=== PATIENT | male | born 2000 | race American Indian/Alaskan Native ===

== ENCOUNTER 2018-02-03 14:18 | Emergency (ER) | payer SELFPAY ==
[2018-02-03 14:31] VITALS: TEMP 99.2; BMI 17.2
--- NOTE | 2018-02-03 15:06 | ED PDOC ---
Arrival/HPI - General Historian: Patient - History of Present Illness Time/Duration: 1-3 hours Symptom Onset: Sudden Symptom Course: Resolved Quality: Dullness Severity Level: 5 - General Chief Complaint: Abdominal Pain Time Seen by Provider: 02/03/18 14:22 - History of Present Illness Narrative History of Present Illness (Text): 02/03/18 15:24 Patient is a 17 year old male with no PMH presenting to the ED with vomiting, abdominal pain, and sore throat. Patient states that he had 2 episodes of vomiting with streaks of blood today and also complaining of a sore throat. Patient also admits to epigastric pain and a 20 pounds weight loss in the last 6 months. Patient denies of fevers, chills, shortness of breath, chest pain, N/D , or urinary symptoms. No PMD (Chapo Clarke) Past Medical History - Provider Review Nursing Documentation Reviewed: Yes - Travel History Have you recently traveled outside [place] w/in the past 3 mons?: No - Past History Past History: No Previous - Infectious Disease Hx of Infectious Diseases: None - Psychiatric Hx Substance Use: Yes (marijuana) Family/Social History - Physician Review Nursing Documentation Reviewed: Yes Family/Social History: No Known Family HX Smoking Status: Never Smoked Hx Alcohol Use: No Hx Substance Use: Yes (marijuana) Allergies/Home Meds Allergies/Adverse Reactions: Allergies No Known Allergies Allergy (Verified 02/03/18 14:51) Home Medications: Home Meds Medication Instructions Recorded Confirmed No Known Home Med 02/03/18 02/03/18 Review of Systems - Physician Review All systems were reviewed & negative as marked: Yes - Review of Systems Constitutional: Weight Change Eyes: Normal ENT: Normal Respiratory: Other (Throat pain). absent: SOB, Cough Cardiovascular: Normal. absent: Chest Pain Gastrointestinal: Abdominal Pain, Vomiting, Hematemesis. absent: Stool Changes , Constipation, Diarrhea, Hematochezia, Anorexia Genitourinary Male: Normal. absent: Dysuria, Frequency, Hematuria Musculoskeletal: Normal. absent: Arthralgias Skin: Normal. absent: Rash, Pruritis, Skin Lesions Neurological: Headache. absent: Dizziness Psychiatric: Normal. absent: Anxiety, Depression Physical Exam Vital Signs Reviewed: Yes Temperature: Afebrile Blood Pressure: Normal Pulse: Regular Respiratory Rate: Normal Appearance: Positive for: Well-Appearing, Comfortable. No: Non-Toxic Pain Distress: Mild Mental Status: Positive for: Alert and Oriented X 3 - Systems Exam Head: Present: Atraumatic, Normocephalic Pupils: Present: PERRL Extroacular Muscles: Present: EOMI Conjunctiva: Present: Normal Mouth: Present: Moist Mucous Membranes Respiratory/Chest: Present: Clear to Auscultation, Good Air Exchange. No: Respiratory Distress, Accessory Muscle Use, Wheezes, Rales, Rhonchi Cardiovascular: Present: Regular Rate and Rhythm, Normal S1, S2. No: Murmurs, Rub, Gallop Abdomen: Present: Tenderness (Mildly tender to palpation in the left lower quadrant), Normal Bowel Sounds. No: Distention, Peritoneal Signs, McBurney's Point Tender, Rovsing's Sign Present Upper Extremity: Present: Normal Inspection. No: Cyanosis, Edema Lower Extremity: Present: Normal Inspection. No: Edema Neurological: Present: GCS=15, CN II-XII Intact, Speech Normal Skin: Present: Warm, Dry, Normal Color. No: Rashes Psychiatric: Present: Alert, Oriented x 3, Normal Insight, Normal Concentration Vital Signs Temp Pulse Resp BP Pulse Ox 02/03/18 17:30 82 18 112/77 99 02/03/18 14:31 99.2 F 90 19 119/78 99 Medical Decision Making Reassessment Condition: Re-examined, Improved ED Course and Treatment: 02/03/18 15:19 Impression: Patient is a 17 year old male presenting to the ED with hematemesis, abdominal pain, and sore throat. Differential Diagnosis included but are not limited to: - H. pylori - Gastritis Plan: -- CBC -- CMP -- Lipase -- Chest xray -- CT abdomen with PO and IV contrast -- Tylenol Progress Notes: 02/03/18 17:33 - Patient complaining of headache. Tylenol ordered. - Lipase: 42 - WBC: WNL 02/03/18 18:59 - Chest Xray: No acute disease - CT abdomen: pending (Chapo Clarke) - Lab Interpretations Lab Results: 02/03/18 15:30 02/03/18 15:30 Lab Results 02/03/18 15:30: Sodium 144, Potassium 4.0, Chloride 103, Carbon Dioxide 26, Anion Gap 19, BUN 10, Creatinine 0.8, Est GFR ( Amer) > 60, Est GFR (Non- Af Amer) > 60, Random Glucose 92, Calcium 9.6, Total Bilirubin 1.2, AST 22, ALT 21, Alkaline Phosphatase 70, Total Protein 8.4 H, Albumin 5.1 H, Globulin 3.4, Albumin/Globulin Ratio 1.5, Lipase 42 02/03/18 15:30: WBC 11.3 H, RBC 5.35, Hgb 16.6, Hct 45.8, MCV 85.6, MCH 31.0, MCHC 36.2, RDW 12.8, Plt Count 220, MPV 9.8, Gran % 88.6 H, Lymph % (Auto) 5.4 L , [place] % (Auto) 5.7, Eos % (Auto) 0.1 L, Baso % (Auto) 0.2, Gran # 9.97 H, Lymph # (Auto) 0.6 L, [place] # (Auto) 0.6, Eos # (Auto) 0.0, Baso # (Auto) 0.02 - RAD Interpretation Radiology Orders: 02/03/18 15:07 ABDOMEN & PELVIS [ABD PELVIS PO & IV CONTRAST] [CT] Stat 02/03/18 15:10 CHEST ONE VIEW [RAD] Stat - Medication Orders Current Medication Orders: Discontinued Medications Acetaminophen (Tylenol 325mg Tab) 650 mg PO STAT STA Stop: 02/03/18 17:33 Last Admin: 02/03/18 18:00 Dose: 650 mg MAR Pain/Vitals Document 02/03/18 18:00 EFRAÍN (Rec: 02/03/18 18:01 EFRAÍN [id number]) Pain Reassessment Is This A Pain ReAssessment? No Sleep Is patient sleeping during reassessment? No Presence of Pain Presence of Pain Yes Pain Scale Used Pain Scale Used Numeric Location Intensity 4 Scale Used Numeric Acetaminophen (Tylenol 325mg Tab) 650 mg PO STAT STA Stop: 02/03/18 17:46 Last Admin: 02/03/18 18:01 Dose: Benzocaine/Menthol (Cepacol Sore Throat) 1 arnaldo MT ONCE ONE Stop: 02/03/18 15:13 Last Admin: 02/03/18 15:45 Dose: 1 arnaldo Disposition/Present on Arrival - Present on Arrival Any Indicators Present on Arrival: No History of DVT/PE: No History of Uncontrolled Diabetes: No Urinary Catheter: No History of Decub. Ulcer: No History Surgical Site Infection Following: None - Disposition Have Diagnosis and Disposition been Completed?: Yes Disposition Time: 19:00 - Disposition Diagnosis: Vomiting, Abdominal pain Patient Problems: Current Active Problems Problem Status Onset Abdominal pain Acute Vomiting Acute Condition: STABLE Additional Instructions: JULIOCESAR JCAK, thank you for letting us take care of you today. Your provider was Ramone Nolan DO and you were treated for ABDOMINAL PAIN/VOMITING. The emergency medical care you received today was directed at your acute symptoms. If you were prescribed any medication, please fill it and take as directed. It may take several days for your symptoms to resolve. Return to the Emergency Department if your symptoms worsen, do not improve, or if you have any other problems. Please contact your doctor or call one of the physicians/clinics you have been referred to that are listed on the Patient Visit Information form that is included in your discharge packet. Bring any paperwork you were given at discharge with you along with any medications you are taking to your follow up visit. Our treatment cannot replace ongoing medical care by a primary care provider outside of the emergency department. Thank you for allowing the [facility] team to be part of your care today. If you had an X-Ray or CT scan: A Radiologist will review the ED reading if any change in treatment is needed we will contact you. If you had a blood, urine, or wound culture: It will take several days for the results, if any change in treatment is needed we will contact you. If you had an STI test: It will take 48 hours for the results. Please call after 1 week if you have not heard back. Referrals: Gladys Simmons MD [Medical Doctor] - Follow up with primary Roel Ramires DO [Staff Provider] - Follow up with primary Forms: yeppt (Belarusian)
[2018-02-03] MEDS ORDERED: Benzocaine/Menthol (Cepacol) Lozenge MT ONE (15:12)
[2018-02-03] MEDS ORDERED: Iohexol 240 (50 ml) ONE (15:19)
[2018-02-03 16:38] LABS: BASO # 0.02 K/mm3 (0.0-2.0); BASO % 0.2 % (0.0-3.0); EOS % 0.1 % (1.5-5.0); GRAN # 9.97 (1.4-6.5); GRAN % 88.6 % (50.0-68.0); HEMOGLOBIN 16.6 g/dL (14.0-18.0); LYMPH # 0.6 (1.2-3.4); LYMPH % 5.4 % (22.0-35.0); MEAN CELL VOLUME 85.6 fl (80.0-105.0); MEAN CORPUSCULAR HGB CONC 36.2 g/dl (31.0-37.0); MEAN PLATELET VOLUME 9.8 fl (7.0-11.0); MONO # 0.6 (0.1-0.6); MONO % 5.7 % (1.0-6.0); RBC 5.35 10^6/uL (3.5-6.1); RED CELL DISTRIBUTION WIDTH 12.8 % (11.5-14.5); WHITE BLOOD COUNT 11.3 10^3/ul (4.5-11.0)
[2018-02-03 16:46] LABS: ALB/GLOB RATIO 1.5 (1.1-1.8); ALBUMIN 5.1 g/dL (3.0-4.8); ALT/SGPT 21 U/L (7-56); AST/SGOT 22 U/L (17-59); BLOOD UREA NITROGEN 10 mg/dL (7-21); CALCIUM 9.6 mg/dL (8.4-10.5); GFR NON-AFRICAN AMERICAN > 60; LIPASE 42 U/L (23-300)
[2018-02-03] MEDS ORDERED: Iohexol 300 100 ML IJ ONE (18:20)
[2018-02-03 18:22] VITALS: RESP 18
--- NOTE | 2018-02-03 18:50 | RAD ---
HISTORY: r/o URI COMPARISON: None available. TECHNIQUE: Chest, one view. FINDINGS: LUNGS: No focal consolidation. Please note that chest x-ray has limited sensitivity for the detection of pulmonary masses. PLEURA: No significant pleural effusion identified. No definite pneumothorax . CARDIOVASCULAR: The cardiomediastinal silhouette appears within normal limits of size. OSSEOUS STRUCTURES: No acute osseous abnormality identified. VISUALIZED UPPER ABDOMEN: Unremarkable. OTHER FINDINGS: None. IMPRESSION: No focal consolidation, significant pleural effusion, or definite pneumothorax identified.
[2018-02-03 20:20] VITALS: BP 115/82; PULSE 85; O2SAT 100
--- NOTE | 2018-02-04 08:52 | CT ---
Date of service: 02/03/2018 PROCEDURE: CT Abdomen and Pelvis with contrast HISTORY: Abdominal pain and vomiting. COMPARISON: None. TECHNIQUE: Contrast dose: 100 cc Omnipaque 300. Radiation dose: Total exam DLP = 202.36 mGy-cm. This CT exam was performed using one or more of the following dose reduction techniques: Automated exposure control, adjustment of the mA and/or kV according to patient size, and/or use of iterative reconstruction technique. FINDINGS: LOWER THORAX: Unremarkable. LIVER: Unremarkable. No gross lesion or ductal dilatation. GALLBLADDER AND BILE DUCTS: Unremarkable. PANCREAS: Unremarkable. No gross lesion or ductal dilatation. SPLEEN: Unremarkable. ADRENALS: Unremarkable. No mass. KIDNEYS AND URETERS: Unremarkable. No hydronephrosis. No solid mass. Incidental finding(s): Right renal cyst 1.6 cm. VASCULATURE: Unremarkable. No aortic aneurysm. BOWEL: Unremarkable. No obstruction. No gross mural thickening. APPENDIX: Normal appendix. PERITONEUM: Unremarkable. No free fluid. No free air. LYMPH NODES: Unremarkable. No enlarged lymph nodes. BLADDER: Unremarkable. REPRODUCTIVE: Unremarkable. BONES: No acute fracture. OTHER FINDINGS: None. IMPRESSION: No significant or acute findings to account for/ related to the clinical presentation. Additional benign and/or incidental findings described above. Concordant results (preliminary interpretation) provided by [employer]. Procedure Completed: 18:36 Preliminary ([facility]) Report: Dictated and Authenticated: 19:16 Final Interpretation: 08:51 February 04, 2018.
== END 2018-02-03 19:45 | disposition home or self-care (01) ==
LOC: ED 14:18
DX: R10.9 Unspecified abdominal pain (principal); R11.10 Vomiting, unspecified
CPT/HCPCS: 71045; 74177; 80053; 83690; 85025; 99285; Q9966; Q9967